=== PATIENT | female | born 1975 | race Caucasian/White ===

== ENCOUNTER → 2019-02-20 | Outpatient (CLI) | payer BC ==
[~2019-02-20] MED LIST: CIPROFLOXACIN500 M1 PO; FIORICET 50-301 EACH; FLEXERIL PO; NOHOMEMEDICATIONS; NORCO 5-325 TA1 EACH PO; PHENAZOPYRIDIN200 M2 PO; PHENERGAN 25 MG25 M1 PO; PRILOSEC10 MG; XANAX 0.25 MG0.25 MG; ZANTAC300 MG PO
== END ==
LOC: M.RAD 15:45
DX: Z12.31 Encounter for screening mammogram for malignant neoplasm of breast (principal)

== ENCOUNTER → 2021-01-12 | Outpatient (CLI) | payer BC | LOC: M.RAD 09:30 | PROVIDERS: ATTEND Physician Assistant | DX: Z12.31 Encounter for screening mammogram for malignant neoplasm of breast (principal) ==